=== PATIENT | male | born 1960 | race Caucasian/White ===

== ENCOUNTER 2017-01-15 08:28 | Inpatient (IN) | payer BC, OTHER ==
[~2017-01-15] VITALS: Ht 185.4 cm; Wt 80.3 kg
[2017-01-15] MEDS ORDERED: MAGNESIUM HYDROXIDE 30 ML LIQUID UDC PO PRN (15:00)
[2017-01-15] MEDS ORDERED: HYDROXYZINE PAMOATE 25 MG CAPSULE PO PRN (15:00)
[2017-01-15] MEDS ORDERED: ONDANSETRON ODT 4 MG TAB.RAPDIS SL PRN (15:00)
[2017-01-15] MEDS ORDERED: DICYCLOMINE HCL 20 MG TABLET PO PRN (15:00)
[2017-01-15] MEDS ORDERED: GABAPENTIN 300 MG CAPSULE PO SCH ×2 (15:00→21:00)
[2017-01-15] MEDS ORDERED: IBUPROFEN 400 MG TABLET PO PRN (15:00)
[2017-01-15] MEDS ORDERED: LOPERAMIDE HCL 2 MG CAPSULE PO PRN ×2 (15:00)
[2017-01-15] MEDS ORDERED: MAG HYDROX/AL HYDROX/SIMETH 30 ML LIQUID UDC PO PRN (15:00)
[2017-01-15] MEDS ORDERED: THIAMINE HCL 200 MG/2 ML VIAL IM ONE (15:00)
[2017-01-15] MEDS ORDERED: ONDANSETRON 4 MG/2 ML VIAL IM PRN (15:00)
[2017-01-15] MEDS ORDERED: LORAZEPAM 2 MG/1 ML VIAL IM PRN (15:00)
[2017-01-15] MEDS ORDERED: MIRALAX 17 GM POWD.PACK PO PRN (15:00)
[2017-01-15] MEDS ORDERED: LORAZEPAM 1 MG TABLET PO PRN ×2 (15:00)
[2017-01-15] MEDS ORDERED: ACETAMINOPHEN 325 MG TABLET PO PRN (15:00)
--- NOTE | 2017-01-15 15:20 | NUR ---
PRE ASSESSMENT: A 56 Y O MALE IS A/O X 4 AND WITH STEADY GAIT IN INTAKE. BP 122/88 104 96.8 95% 18. HE REPORTS ELEVATED H1AC AND TAKES METFORMIN. HE REPORTS HTN AND TAKES LISINIPRIL,ECZEMA WHICH HE BROUGHT CREAM FOR AND HYPERLIPIDEMIA. HE STATES HE DRINKS 750 ML OF RUM DAILY IN THIS PATTERN FOR 1 1/2 YEARS. HE HAD A SEIZURE AT HIS FATHER'S IN MAY FROM ETOH W/D. HE STATES HEHAS BEEN TRRYING TO QUIT ON HIS OWN FOR 6 MONTHS AND IS UNABLE. HE STATES HE NEEDS HELP. HE HAD 4 SHOTS OF RUM AT 1 PM TODAY. WILL ASSESS ON UNIT.
[2017-01-15] MEDS ORDERED: ASPI81TA93 PO (15:35)
[2017-01-15] MEDS ORDERED: ATOR20TA PO (15:35)
[2017-01-15] MEDS ORDERED: TRIA15CR2 TP (15:35)
[2017-01-15] MEDS ORDERED: METF10002 PO (15:35)
[2017-01-15] MEDS ORDERED: LISI10TA5 PO (15:35)
[2017-01-15 16:27] VITALS: BP 122/88
--- NOTE | 2017-01-15 16:37 | NUR ---
A 56 YO MALE ADMITTED TO [facility] FOR MEDICALLY SUPERVISED DETOX OF ETOH. HE REPORTS DRINKING 750 ML OF RUM DAILY. HE HAS BEEN IN THIS PATTERN FOR 1 1/2 YEARS. HE HAS A 20 YR HISTORY OF DRINKING ETOH. HE REPORTS HAVING A SEIZURE IN MAY AFTER NOT HAVING A DRINK FOR 3 DAYS. HE HAS TRIED TO STOP ON HIS OWN SINCE THEN AND STATES HE WAS UNSUCCESSFUL AND HE NEEDS HELP. HE REPORTS LIVING AT HOME WITH HIS AND DOG . HIS FATHER IN MAY AND HAS HAD OTHER SICKNESS AND DEATHS IN HIS FAMILY WHICH HAVE NOT MADE IT ANY EASIER. HE DENIES S/I AND H/I. SKIN WARM DRY AND INTACT WITH SOME ECCHYMOTIC AREAS TO BILATERAL ARMS FROM REPORTED ECZEMA. PT IS HYPERVERBAL AND REPORTS MILD ANXIETY. HE IS UNABLE TO VOID AND IS ON ROOM RESTRICTION UNTIL UDS COLLECTED. HIS PCP IS DR LOPEZ. HE STATES HE TOOK A VICODIN YESTERDAY BUT THIS WAS THE ONLY ONE AND HE TOOK IT BECAUSE OF ANXIETY ABOUT COMING IN TODAY. HE HAS A MEDICAL HX OF HTN;HYPERLIPIDEMIA;ELEVATED HGA1C; AND ECZEMA. HE HAS A HX OF H PYLORIC VIRUS. HE HAD ONE SEIZURE IN MAY FROM ETOH W/D. ORIENTED PT TO STAFF AND UNIT. WILL PROVIDE SAFE AND SUPPORTIVE ENVIRONMENT. Addendum: 01/15/17 at 1801 by ARLETTE VIZCAINO RN PT DRANK 4 SHOTS OF RUM AT 1300 TODAY. UDS PROVIDED AT 1755. THIAMINE IM ADMINISTERED ORDERED.
[2017-01-15 18:12] LABS: *AMPHETAMINE, URINE NEGATIVE (NEGATIVE); *BARBITURATE, URINE NEGATIVE (NEGATIVE); *CANNABINOID, URINE NEGATIVE (NEGATIVE); *COCCAINE, URINE NEGATIVE (NEGATIVE); *OPIATE, URINE POSITIVE (NEGATIVE); *PHENCYCLIDINE SCREEN,URINE NEGATIVE (NEGATIVE)
--- NOTE | 2017-01-15 18:42 | NUR ---
END OF SHIFT: PT IS NEWLY ADMITTED. HE IS WATCHING TV AND STATES HE FEELS OK. THIAMINE IM ADMINISTERED. UDS PROVIDED. WILL PASS SHIFT REPORT TO ONCOMING NIGHT NURSE.
[2017-01-15 19:57] LABS: BASOPHILS % (AUTO) 0.9 % (0.0-2.0); EOSINOPHILS # (AUTO) 0.1 K/uL (0.0-0.7); EOSINOPHILS % (AUTO) 1.9 % (0.0-7.0); HEMATOCRIT 33.3 % (40-50); HEMOGLOBIN 11.4 G/DL (14.0-18.0); LYMPHOCYTES # (AUTO) 1.4 K/UL (0.8-4.8); LYMPHOCYTES % (AUTO) 32.5 % (20.5-51.5); MEAN CORPUSCULAR HEMOGLOBIN 36.2 UUG (27.0-31.0); MEAN CORPUSCULAR HGB CONC 34 g/dL (32.0-37.0); MEAN CORPUSCULAR VOLUME 105.6 FL (82.0-92.0); MONOCYTES # (AUTO) 0.4 K/UL (0.1-1.30); MONOCYTES % (AUTO) 9.2 % (0.0-11.0); NEUTROPHILS # (AUTO) 2.4 K/UL (1.8-8.9); NEUTROPHILS % (AUTO) 55.5 % (38.5-71.5); PLATELET COUNT (AUTO) 103 K/UL (150-450); RED BLOOD CELL COUNT(AUTO) 3.16 MIL/UL (4.7-6.1); WHITE BLOOD COUNT (AUTO) 4.3 K/UL (4.0-11.2)
[2017-01-15 20:00] VITALS: BP 147/93
--- NOTE | 2017-01-15 20:00 | NUR ---
Start of Shift Patient is a 56-year old, male, admitted for ETOH Dependence. Pt with NKA, is Full Code and on Diabetic/NCS Diet. Pt with history of HTN, Hyperlipidemia, DM2, Anxiety, Depression, H.pylori Virus and Seizure one-time last 05/2016 due to Withdrawal. Pt is AAOx4 and with no SOB noted at this time. Pt with mild anxiety observed. With no skin issues. Fall, universal, seizure and safety prec in place. Call light within reach. No c/o pain at this time. Latest CIWA=4. Will continue to monitor pt.
[2017-01-15 20:13] LABS: BILIRUBIN,TOTAL 0.6 mg/dL (0.2-1.0); CREATININE 0.7 mg/dL (0.6-1.3); POTASSIUM 3.4 mmol/L (3.5-5.1); TOTAL PROTEIN, SERUM 7.5 g/dL (6.4-8.2)
[2017-01-15 20:21] LABS: THYROID STIMULATING HORMONE 2.41 mIU/mL (0.358-3.740)
[2017-01-15] MEDS ORDERED: MAGNESIUM OXIDE 400 MG TABLET PO ONE (20:30)
[2017-01-15] MEDS ORDERED: POTASSIUM CHLORIDE 10 MEQ CAPSULE.SA PO ONE (20:30)
[2017-01-15] MEDS: TRAZODONE 50 MG TABLET PO PRN (21:35)
--- NOTE | 2017-01-15 21:35 | NUR ---
RN note PRN Ativan and Trazodone Pt c/o feeling anxious and with cold sweats observed. CIWA=7. Administered Ativan 1 mg PO as ordered. Pt also c/o inability to sleep. Administered Trazodone 50 mg PO as ordered. Will reassess.
--- NOTE | 2017-01-15 22:40 | NUR ---
RN note reassess Pt verbalized feeling "better" and "starting to feel sleepy now". No cold sweats reported.
[2017-01-16] VITALS (8 sets, daily range): BP systolic 134–164; BP diastolic 86–109
[2017-01-16] MEDS: CLONIDINE HCL 0.1 MG TABLET PO PRN ×3 (00:44→21:07)
--- NOTE | 2017-01-16 00:44 | NUR ---
RN note PRN Clonidine Pt with UW=224/95, Davoq=342. With no reported symptoms from patient. Administered Clonidine 0.1 mg PO/ Will reassess.
--- NOTE | 2017-01-16 01:34 | NUR ---
RN note reassess BP apvwipvif=064/88. Pulse=87. Clonidine effective. Will continue to monitor pt.
[2017-01-16] MEDS ORDERED: hydrALAZINE HCL 25 MG TABLET PO SCH (04:30)
--- NOTE | 2017-01-16 04:32 | NUR ---
RN note one-time Hydralazine Pt with elevated BT=718/102, Pulse=97. Obtained order for Hydralazine 25 mg one-time PO. Will reassess.
--- NOTE | 2017-01-16 05:30 | NUR ---
RN note reassess BP rvmtiuwko=505/86, Pulse=97. Pt is asymptomatic. Will closely monitor pt.
--- NOTE | 2017-01-16 06:21 | NUR ---
RN note one-time Clonidine and Lisinopril Vital signs being closely monitored, checked before the end of the shift. TZ=061/103, Bzvxt=439. Notified Dr. Atkinson and he ordered one-time Lisinopril 10 mg PO and one-time Clonidine 0.1 mg PO one-time. Pt is asymptomatic. No c/o pain nor dizziness. Will reassess.
[2017-01-16] MEDS ORDERED: CLONIDINE HCL 0.1 MG TABLET PO ONE (06:30)
[2017-01-16] MEDS ORDERED: LISINOPRIL 10 MG TABLET PO SCH (06:30)
--- NOTE | 2017-01-16 07:20 | NUR ---
RN note reassess Pt's BP viqpsrttx=420/103. Pt is asymptomatic. Dr. Atkinson is aware. [facility]
--- NOTE | 2017-01-16 07:27 | NUR ---
End of Shift Patient is a 56-year old, male, admitted for ETOH Dependence. Pt with NKA, is Full Code and on Diabetic/NCS Diet. Pt with history of HTN, Hyperlipidemia, DM2, Anxiety, Depression, H.pylori Virus and Seizure one-time last 05/2016 due to Withdrawal. Pt is AAOx4 and with no SOB noted at this time. Pt with mild anxiety observed. With no skin issues. Fall, universal, seizure and safety prec in place. Call light within reach. No c/o pain at this time. Latest CIWA=6, slept for 6 hours. Endorsed to AM shift nurse for continuity of care.
--- NOTE | 2017-01-16 07:30 | NUR ---
Start of Shift Report from the night nurse: pt is 56 y/o male here for Etoh r/t Rum 750mL daily for 1.5 years; 5 day Ativan is to start today during my shift. PRN Ativan given once last night. Pt is a full code, ADA diet, NKA, fall and seizure precautions ordered. HHx: HTN with asymptomatic BP 160/105 with PRN Clonidine given once and a ONE Time ordered Clonidine and Lisinopril given this morning during the retail shift supervisor since the nurse states that PRN Hydralazine was ineffective given last night and that pt . I will reassess it during the 0700am v/s scheduled. HHx: Diabetes, Seizure r/t w/d, Hyperlipidemia, Eczema, H. Pylori Virus and first time doing detox. Skin is intact with no open wounds noted. No abnormal labs endorsed to me. Last CIWA 4. Pt is asleep in room. I will cont. to monitor the pt.
[2017-01-16 07:38] LABS: BASOPHILS % (AUTO) 0.7 % (0.0-2.0); EOSINOPHILS % (AUTO) 1.1 % (0.0-7.0); HEMATOCRIT 34.9 % (40-50); HEMOGLOBIN 11.6 G/DL (14.0-18.0); LYMPHOCYTES % (AUTO) 26.5 % (20.5-51.5); MEAN CORPUSCULAR HEMOGLOBIN 35.6 UUG (27.0-31.0); MEAN CORPUSCULAR HGB CONC 33 g/dL (32.0-37.0); MEAN CORPUSCULAR VOLUME 107.1 FL (82.0-92.0); MONOCYTES # (AUTO) 0.4 K/UL (0.1-1.30); MONOCYTES % (AUTO) 11.1 % (0.0-11.0); NEUTROPHILS # (AUTO) 2.5 K/UL (1.8-8.9); NEUTROPHILS % (AUTO) 60.6 % (38.5-71.5); RED BLOOD CELL COUNT(AUTO) 3.26 MIL/UL (4.7-6.1); WHITE BLOOD COUNT (AUTO) 3.9 K/UL (4.0-11.2)
[2017-01-16 07:55] LABS: PLATELET COUNT (AUTO) 95 K/UL (150-450)
[2017-01-16 08:07] LABS: CARBON DIOXIDE 29 mmol/L (21-32); CHLORIDE 98 mmol/L (98-107); CREATININE 0.6 mg/dL (0.6-1.3); GLUCOSE 126 mg/dL (74-106); PHOSPHOROUS 3.2 mg/dL (2.5-4.9); POTASSIUM 3.6 mmol/L (3.5-5.1); UREA NITROGEN, BLOOD 8 mg/dL (7-18)
[2017-01-16 08:15] LABS: MAGNESIUM 1.2 mg/dL (1.8-2.4)
[2017-01-16] MEDS: MULTIVITAMINS,THERAPEUTIC TABLET PO SCH (08:51)
[2017-01-16] MEDS: FOLIC ACID 1 MG TABLET PO SCH (08:51)
[2017-01-16] MEDS: THIAMINE HCL 100 MG TABLET PO SCH (08:51)
[2017-01-16] MEDS: SERTRALINE HCL 50 MG TABLET PO SCH (08:51)
[2017-01-16] MEDS: LORAZEPAM 1 MG TABLET PO SCH ×4 (08:52→21:08)
[2017-01-16] MEDS ORDERED: DOCUSATE SODIUM 250 MG CAPSULE PO PRN (09:00)
[2017-01-16] MEDS ORDERED: DOCUSATE SODIUM 250 MG CAPSULE PO SCH (09:00)
[2017-01-16] MEDS ORDERED: TUBERCULIN,PURIF.PROT.DERIV. 5 TU/0.1 ML TEST ID ONE (09:00)
[2017-01-16] MEDS ORDERED: 5 DAY TAPER OF LORAZEPAM -SERENITY PROTOCOL PO PRN (09:00)
[2017-01-16 10:00] LABS: BAND % (MANUAL) 1 % (0-10); EOSINOPHILS % (MANUAL) 1 % (0-8); LYMPHOCYTES % (MANUAL) 28 % (20-40); MONOCYTES % (MANUAL) 12 % (2-10); NEUTROPHILS % (MANUAL) 58 % (42-75)
--- NOTE | 2017-01-16 10:00 | NUR ---
Communication-Low Magnesium Call from [employer] " Kathe" re: low Magnesium 1.2. I notified Dr. Dodge and New orders for Mag-Ox 800mg PO ONCE. Will cont. to monitor the pt.
[2017-01-16] MEDS ORDERED: MAGNESIUM OXIDE 400 MG TABLET PO ONE (10:45)
--- NOTE | 2017-01-16 12:40 | NUR ---
PRN & Late Medication Administration Pt is in room at rest in semi-fowlers 20 minutes after returning from smoking and pt c/o numbness and tingling in BUE's and BLE's/feet, very mild dizziness with BP 141/109 HR 108 CIWA 3; PRN Clonidine 0.1mg given as ordered & I notified Dr. Dodge so new orders in process for gabapentin. Late medication administration of Mag-Ox 800mg since pt was out smoking. TB test done at 0900 in [facility]. I will reassess BP in 1H.
--- NOTE | 2017-01-16 13:40 | NUR ---
Reassessment PRN Clonidine is effective since BP decreased to 119/90, pt denies chest pain. Will cont. to monitor the pt.
--- NOTE | 2017-01-16 14:30 | NUR ---
New Orders & Late Medication Administration New orders for Lisinopril 10mg first time dose given late since pt was out in group therapy, BP 119/90 HR 99 & gabapentin 100mg given for neuropathic pain /10 first time dose so education on actions and SE's given with ortho static fall prevention.
[2017-01-16] MEDS: LISINOPRIL 10 MG TABLET PO SCH (14:38)
[2017-01-16] MEDS: GABAPENTIN 300 MG CAPSULE PO SCH ×2 (14:38→21:08)
[2017-01-16] MEDS: TRIAMCINOLONE ACET 0.5% CREAM 15 GM TUBE TP SCH (17:00)
[2017-01-16] MEDS: METFORMIN HCL 500 MG TABLET PO SCH (17:45)
--- NOTE | 2017-01-16 18:46 | NUR ---
End of Shift Report to the night nurse: pt is 56 y/o male here for Etoh r/t Rum 750mL daily for 1.5 years; 5 day Ativan started today. Pt is a full code, ADA diet, NKA, fall and seizure precautions ordered. HHx: HTN, Diabetes, Seizure r/t w/d, Hyperlipidemia, Eczema, H. Pylori Virus and first time doing detox. Features symmetrical, PERRLA 3mm, no LOEV, mild dizziness noted r/t medication SE's, numbness and tingling on BUE's and BLE's with news orders for gabapentin r/t neuropathy and is effective. Pt denies chest pain, pulses present in all extremities, HTN controlled with new orders for lisinopril 5mg PO daily given with PRN Clonidine once during my shift. No SOB or respiratory distress noted. DM managed with new order for Metformin, no N/V/D or ab cramping noted during my shift, last BM yesterday. Skin is intact with no open wounds noted, yet pt has new orders for medications reconciled for home med topical for Eczema & PPD done on [facility]. No hallucination, delusions or suicidal ideations noted. Pt attended once group HI during my shift with encouragement. Abnormal labs for low Magnesium 1.2 with new order for Mag-Ox 800mg ONCE given during my shift. Last CIWA 5.
--- NOTE | 2017-01-16 20:00 | NUR ---
Start of Shift Note: Report received from day shift nurse. Pt is a 56 Y/O male admitted on 01/15/17 for medically-supervised withdrawal from ETOH. Pt reported drinking 750ml of rum daily for 1.5 years. Pt is on a 5-day Ativan taper. Pt received with last CIWA=5, and PRN Catapres was given during day shift. Pt is a full code, reports NKDA/NKFA, and is on a CC/Diabetic diet. PMHx: DM II, HTN, dyslipidemia, anxiety, depression, eczema. Pt received in room and reports diaphoresis and anxiety. Bed is in low position and locked, side rails up x2, call light within reach. Will continue to monitor.
[2017-01-16] MEDS: TRAZODONE 50 MG TABLET PO PRN (21:07)
--- NOTE | 2017-01-16 21:07 | NUR ---
PRN CLONIDINE AND PRN TRAZODONE: PATIENT COMPLAINS OF ANXIETY. BP IS 134/100. ADMINISTERED PRN CLONIDINE ORDERED. PATIENT COMPLAINS OF INABILITY TO SLEEP. ADMINISTERED PRN TRAZODONE ORDERED. WILL CONTINUE TO MONITOR.
--- NOTE | 2017-01-16 22:10 | NUR ---
PRN REASSESSMENT: PATIENT IS IN BED WITH EYES CLOSED. RESPIRATIONS ARE EVEN AND UNLABORED. NO S/S OF ACUTE DISTRESS NOTED. PRN TRAZODONE AND PRN CLONIDINE EFFECTIVE AEB PATIENT'S ABILITY TO REST. WILL CONTINUE TO MONITOR.
[2017-01-17] VITALS: BP 122/91
--- NOTE | 2017-01-17 | NUR ---
CIWA DEFERRED: CIWA IS DEFERRED FOR SLEEP. V/S STABLE. ALL SAFETY PRECAUTIONS ARE IN PLACE. WILL CONTINUE TO MONITOR. Addendum: 01/17/17 at 0120 by STEVE SHAIKH RN Amended: Links added.
[2017-01-17 04:00] VITALS: BP 126/94
--- NOTE | 2017-01-17 04:00 | NUR ---
CIWA Deferred: CIWA is deferred for sleep. V/S stable. All safety precautions are in place. Will continue to monitor. Addendum: 01/17/17 at 0435 by STEVE SHAIKH RN Amended: Links added.
--- NOTE | 2017-01-17 07:15 | NUR ---
Start of Shift Report from the night nurse: pt is 56 y/o male here for Etoh r/t Rum 750mL daily for 1.5 years; 5 day Ativan is to start today during my shift. PRN Ativan given once last night. Pt is a full code, ADA diet, NKA, fall and seizure precautions ordered. HHx: HTN with last BP elevated 156/109 so PRN Clonidine given once after Dr. Dodge notified of BP in which he d/c'd the losartan so recommended for me to f/u with the pt's preference. HHx: Diabetes with metformin given as ordered and NNO for accuecheck, Seizure r/t w/d, Hyperlipidemia, Eczema, H. Pylori Virus and first time doing detox. Skin is intact with no open wounds noted. No abnormal labs endorsed to me. Last CIWA 4. Pt is asleep in room. I will cont. to monitor the pt.
--- NOTE | 2017-01-17 07:30 | NUR ---
End of Shift Note: Pt is a 56 Y/O male admitted to [facility] on 01/15/17 for medically-supervised withdrawal from ETOH. Pt reports a PMHx of DM II, HTN, dyslipidemia, anxiety, depression, and eczema. Pt is a full code. Pt reports NKDA/NKFA. Pt is on a CC/Diabetic diet. Pt reported drinking 750ml of rum daily for 1.5 years, and was placed on a 5-day Ativan taper. Scheduled medication regime effectively managed s/s of withdrawal this shift, in addition to PRN Catapres for anxiety. Last CIWA=4 at 20:00.V/S stable throughout shift, with elevated BP. Total fluid intake this shift: 855 ml; output: urine x 2 and BM x 1. PRN Trazodone was given for inability to sleep, which was effective and pt slept 8 hours this shift. Pt is currently in bed, all needs attended and met. Pt endorsed to day shift nurse.
[2017-01-17 08:00] VITALS: BP 153/110
[2017-01-17] MEDS: METFORMIN HCL 500 MG TABLET PO SCH ×2 (08:48→16:57)
[2017-01-17] MEDS: GABAPENTIN 300 MG CAPSULE PO SCH ×3 (08:48→22:17)
[2017-01-17] MEDS: LORAZEPAM 1 MG TABLET PO SCH ×3 (08:48→22:17)
[2017-01-17] MEDS: THIAMINE HCL 100 MG TABLET PO SCH (08:48)
[2017-01-17] MEDS: ASPIRIN 81 MG TAB.CHEW PO SCH (08:48)
[2017-01-17] MEDS: FOLIC ACID 1 MG TABLET PO SCH (08:48)
[2017-01-17] MEDS: LISINOPRIL 10 MG TABLET PO SCH (08:49)
[2017-01-17] MEDS: MULTIVITAMINS,THERAPEUTIC TABLET PO SCH (08:49)
[2017-01-17] MEDS: SERTRALINE HCL 50 MG TABLET PO SCH (08:49)
[2017-01-17] MEDS: TRIAMCINOLONE ACET 0.5% CREAM 15 GM TUBE TP SCH ×2 (08:54→16:58)
[2017-01-17 08:55] LABS: BILIRUBIN,DIRECT 0.5 mg/dL (0.0-0.2); BILIRUBIN,TOTAL 1.2 mg/dL (0.2-1.0); CREATININE 0.8 mg/dL (0.6-1.3); MAGNESIUM 1.6 mg/dL (1.8-2.4); PHOSPHOROUS 4.1 mg/dL (2.5-4.9); POTASSIUM 3.7 mmol/L (3.5-5.1); TOTAL PROTEIN, SERUM 7.8 g/dL (6.4-8.2)
[2017-01-17 11:10] LABS: HEPATITIS B SURFACE AG Negative (Negative)
[2017-01-17 12:00] VITALS: BP 145/107
[2017-01-17] MEDS ORDERED: MAGNESIUM OXIDE 400 MG TABLET PO ONE ×2 (12:30→13:15)
[2017-01-17] MEDS: CLONIDINE HCL 0.1 MG TABLET PO PRN (13:38)
--- NOTE | 2017-01-17 14:30 | NUR ---
New Orders & PRN Medication Administration Pt has low Magnesium 1.6 and c/o 1st bout of diarrhea after breakfast to Dr. Dodge so new orders of Magnesium 1200mg once and given late since pt was in group with PRN Imodium 4mg and Clonidine 0.1mg since pt has tremors visible and is anxious, BP 145/107 HR 97 at rest. I encouraged pt to replenish hydrations with vitamin water and regular water and to let me know if he has recurrent diarrhea. New lab orders for 01/18: CBC, Chem 22, Iron panel. I will reassess in 1H.
--- NOTE | 2017-01-17 15:08 | NUR ---
Client was prompted by therapist to attend daily group sessions at 11am and 3:30pm. Client stated he doesn't usually like to attend groups but would give it a try.
--- NOTE | 2017-01-17 15:30 | NUR ---
Reassessment Pt is resting in room with stable BP and denies recurrent episode of diarrhea; PRN Clonidine & Imodium are effective. Will cont. to monitor the pt.
[2017-01-17 16:00] VITALS: BP 156/112
[2017-01-17] MEDS: hydrALAZINE HCL 25 MG TABLET PO PRN (16:57)
--- NOTE | 2017-01-17 17:30 | NUR ---
PRN Medication Administration Pt has BP 156/112 HR 99 so PRN Hydralazine 25mg given as ordered. I will reassess pt in 1H.
--- NOTE | 2017-01-17 18:40 | NUR ---
Reassessment Endorsed to night nurse for reassessment of the BP during shift change. Will cont. to monitor the pt until the end of my shift.
--- NOTE | 2017-01-17 19:05 | NUR ---
End of Shift Report to the night nurse: pt is 56 y/o male here for Etoh r/t Rum 750mL daily for 1.5 years; 5 day Ativan started today. Pt is a full code, ADA diet, NKA, fall and seizure precautions ordered. HHx: HTN, Diabetes, Seizure r/t w/d, Hyperlipidemia, Eczema, H. Pylori Virus and first time doing detox. Features symmetrical, PERRLA 3mm, no LOVE, mild dizziness noted r/t medication SE's, numbness and tingling on BUE's and BLE's with news orders for gabapentin r/t neuropathy and is effective. Pt denies chest pain, pulses present in all extremities, HTN managed with modified lisinopril 10mg, PRN Clonidine once at 1430pm and PRN Hydralazine 25mg given at 1715pm during my shift. No SOB or respiratory distress noted. DM managed with new order for Metformin, no N/V/D or ab cramping noted during my shift. Abnormal labs for low Magnesium 1.6 with new order for Mag-Ox 1200mg given with Imodium 4mg since pt has 2 bouts of diarrhea during my shift. Skin is intact with no open wounds noted, yet pt has new orders for medications reconciled for home med topical for Eczema & refused it during my shift since he uses it at home PRN. No hallucination, delusions or suicidal ideations noted. New orders for Fe2+ panel, CBC, Chem 22. Pt attended once groups during my shift. Last CIWA 6 .
--- NOTE | 2017-01-17 19:30 | NUR ---
PRN Hydralazine Reassessment: BP decreased from 153/112 to 123/93. PRN Hydralazine effective.
[2017-01-17 20:00] VITALS: BP 123/93
--- NOTE | 2017-01-17 20:00 | NUR ---
Start of Shift Note: Report received from day shift nurse. Pt is a 56 yo male admitted on 01/15/17 for medically-supervised withdrawal from ETOH. Pt reports drinking 750ml of rum daily for 18 months. Pt continues on a 5-day Ativan taper. Pt received with last CIWA=6, and PRNs Clonidine, hydralazine, and imodium were given during day shift. Pt reports NKDA/NKFA, is on a CC/Diabetic diet, and is a full code. PMHx: DM II, HTN, dyslipidemia, eczema, anxiety, and depression. Pt received in room and reports anxiety; pt noted with fine tremor. Bed is in low position and locked, side rails up x2, call light is within reach. Will continue to monitor.
--- NOTE | 2017-01-17 21:00 | NUR ---
21:00 Meds Late: All 21:00 scheduled medications late due to patient being off the unit on the smoking patio.
[2017-01-17] MEDS: TRAZODONE 50 MG TABLET PO PRN (22:17)
--- NOTE | 2017-01-17 22:17 | NUR ---
PRN Trazodone: Patient complains of inability to sleep. Administered PRN Trazodone as ordered. Will continue to monitor.
[2017-01-18] VITALS: BP 139/95
--- NOTE | 2017-01-18 | NUR ---
CIWA Deferred: CIWA is deferred for sleep. V/S stable. All safety precautions are in place. Will continue to monitor. Addendum: 01/18/17 at 0103 by STEVE SHAIKH RN Amended: Links added.
--- NOTE | 2017-01-18 04:00 | NUR ---
Vitals Refused, CIWA Deferred: Patient refuses 04:00 V/S assessment. CIWA is deferred for sleep. No s/s of acute distress noted. All safety precautions are in place. Will continue to monitor. Addendum: 01/18/17 at 0544 by STEVE SHAIKH RN Amended: Links added.
--- NOTE | 2017-01-18 06:48 | NUR ---
End of Shift Note: Pt is a 56 yo male admitted to [facility] on 01/15/17 for medically-supervised withdrawal from ETOH. Pt reported a PMHx of DM II, HTN, dyslipidemia, eczema, anxiety, and depression. Pt reports NKDA/NKFA. Pt is on a CC/Diabetic diet. Pt is a full code. Pt reported drinking 750ml of rum daily for 18 months, and was placed on a 5-day Ativan taper. Scheduled medication regime effectively managed s/s of withdrawal this shift. Last CIWA=4 at 20:00.V/S stable throughout shift. Total fluid intake this shift: 500 ml; output: urine x 2 and BM x 0. PRN Trazodone was given for inability to sleep, which was effective and pt slept 8 hours this shift. Pt is currently in bed, all needs attended and met. Pt endorsed to day shift nurse.
--- NOTE | 2017-01-18 07:41 | NUR ---
Start of Shift Received pt in bed resting, A/O x4 and calm and cooperative. Pt is polite and pleasant, able to make needs known. Pt is a 56 year old male admitted for ETOH detoxification on 01/15/17. Pt has NKA, is a full code and on a controlled carbohydrate diet. Pt was administered Trazodone for insomnia, effective as pt slept a reported 8 hours. PMH of DM 1, HTN, anxiety, depression, hyper-cholesterol and eczema. No history of seizure. This is pt's first detoxification or treatment. Pt is currently on 5 day Ativan taper, tolerating well. Bed in low position, wheels locked, side rails up x2 and call light within reach. All safety measures in place per hospital policy. Will continue to monitor, support and encourage according to plan of care.
[2017-01-18 08:07] VITALS: BP 150/108
[2017-01-18] MEDS: METFORMIN HCL 500 MG TABLET PO SCH ×2 (08:20→18:28)
[2017-01-18 08:21] LABS: BASOPHILS # (AUTO) 0.1 K/uL (0.0-8.0); BASOPHILS % (AUTO) 1.2 % (0.0-2.0); EOSINOPHILS # (AUTO) 0.1 K/uL (0.0-0.7); EOSINOPHILS % (AUTO) 1.5 % (0.0-7.0); HEMATOCRIT 37.2 % (40-50); HEMOGLOBIN 12.4 G/DL (14.0-18.0); LYMPHOCYTES # (AUTO) 1.4 K/UL (0.8-4.8); MEAN CORPUSCULAR HEMOGLOBIN 35.7 UUG (27.0-31.0); MEAN CORPUSCULAR HGB CONC 33 g/dL (32.0-37.0); MEAN CORPUSCULAR VOLUME 107.5 FL (82.0-92.0); MONOCYTES # (AUTO) 0.5 K/UL (0.1-1.30); MONOCYTES % (AUTO) 9.6 % (0.0-11.0); NEUTROPHILS # (AUTO) 3.3 K/UL (1.8-8.9); NEUTROPHILS % (AUTO) 61.7 % (38.5-71.5); PLATELET COUNT (AUTO) 112 K/UL (150-450); RED BLOOD CELL COUNT(AUTO) 3.46 MIL/UL (4.7-6.1)
[2017-01-18] MEDS: FOLIC ACID 1 MG TABLET PO SCH (08:21)
[2017-01-18] MEDS: GABAPENTIN 300 MG CAPSULE PO SCH ×3 (08:21→20:46)
[2017-01-18] MEDS: LORAZEPAM 1 MG TABLET PO SCH ×4 (08:21→20:47)
[2017-01-18] MEDS: LISINOPRIL 10 MG TABLET PO SCH (08:21)
[2017-01-18] MEDS: ASPIRIN 81 MG TAB.CHEW PO SCH (08:21)
[2017-01-18] MEDS: THIAMINE HCL 100 MG TABLET PO SCH (08:22)
[2017-01-18] MEDS: SERTRALINE HCL 50 MG TABLET PO SCH (08:22)
[2017-01-18] MEDS: TRIAMCINOLONE ACET 0.5% CREAM 15 GM TUBE TP SCH ×2 (08:22→16:20)
[2017-01-18] MEDS: MULTIVITAMINS,THERAPEUTIC TABLET PO SCH (08:22)
[2017-01-18 08:23] LABS: WHITE BLOOD COUNT (AUTO) 5.4 K/UL (4.0-11.2)
[2017-01-18 08:58] LABS: BILIRUBIN,DIRECT 0.5 mg/dL (0.0-0.2); BILIRUBIN,TOTAL 1.2 mg/dL (0.2-1.0); CREATININE 0.8 mg/dL (0.6-1.3); MAGNESIUM 1.5 mg/dL (1.8-2.4); PHOSPHOROUS 4.8 mg/dL (2.5-4.9); POTASSIUM 3.8 mmol/L (3.5-5.1); TOTAL PROTEIN, SERUM 8.1 g/dL (6.4-8.2)
[2017-01-18 12:00] VITALS: BP 163/116
--- NOTE | 2017-01-18 12:09 | NUR ---
Endorsement Thread Machine Operator provided report to accepting nurse. Pt is a 56 year old male admitted for ETOH detoxification on 01/15/17. Pt has NKA, is a full code and on a controlled carbohydrate diet. PMH of DM 1, HTN, anxiety, depression, hyper-cholesterol and eczema. No history of seizure. This is pts first detoxification or treatment. Pt is currently on 5 day Ativan taper, tolerating well. Bed in low position, wheels locked, side rails up x2 and call light within reach. All safety measures in place per hospital policy. No PRNs administered. Pt is A/Ox4 and able to make his needs known. Pt has been calm and cooperative with treatment, polite and pleasant. No s/s of distress noted. Bed in low position, wheels locked, side rails up x2 and call light in reach. All safety measures in place per hospital policy. Will continue to monitor, support and encourage according to plan of care.
--- NOTE | 2017-01-18 12:10 | NUR ---
Assumed care: Assumed care for patient at this time. Patient is a 56 year old male admitted for ETOH dependence who was placed on a 5-day Ativan taper as ordered. No adverse reactions noted. Prior to admission, patient was using 750cc of rum daily x 1 1/2 years. Has past medical hx of H. Pylori virus, HTN, high cholesterol, HgBA1C, eczema, seizures x 1 related to withdrawal, anxiety and depression. Educated patient on his current plan of care for the day and his medication regimen. Will continue to monitor closely. Safety precautions in place.
[2017-01-18] MEDS: hydrALAZINE HCL 25 MG TABLET PO PRN ×2 (12:24→20:46)
--- NOTE | 2017-01-18 12:24 | NUR ---
Hydralazine 25 mg PO given: Patient's BP 163/116, Pulse 91 while at rest. Denies any complains of headache, dizziness and/or chest pain. No complains of blurred vision. Medicated patient with Hydralazine 25mg PO as ordered. Will monitor for effectiveness.
[2017-01-18 13:24] VITALS: BP 153/101
--- NOTE | 2017-01-18 13:24 | NUR ---
MD Communication/Re-assessment: BP 153/101, Pulse 92. PRN Hydralazine was mildly effective in reducing patient's blood pressure. Encouraged smoking cessation. Notified Dr. Dodge who is on the unit at this time about patient's blood pressure. Per MD, he will enter in orders. Orders noted and carried out.
[2017-01-18] MEDS: AMLODIPINE 5 MG TABLET PO SCH (14:11)
[2017-01-18 17:00] VITALS: BP 150/94
--- NOTE | 2017-01-18 18:53 | NUR ---
End of Shift Notes: Patient continues to be on 5-day Ativan taper. Tolerated well. No adverse reactions noted. VS monitored closely. BP monitored due to HTN. On routine meds as ordered. Withdrawal symptoms monitored. Patient presented with anxiety and fine tremors. Last CIWA 6. Per patient, Ativan has been effective in reducing his withdrawal symptoms. PRN Hydralazine 25 mg PO given at 1224 due to increased BP. No s/s of HTN noted. MD aware of patients trending BP and was placed on additional Norvasc as ordered. Compliant with care and treatment. All needs met and attended. Will continue to monitor closely.
--- NOTE | 2017-01-18 19:12 | NUR ---
Start of shift note Received report from day shift nurse. Pt is a 56 yo male, A+Ox4, presenting to [facility] for ETOH dependence. Pt has NKA, is on Full Code status, and on Regular diet. Pt is on Fall and Seizure precautions. Pt has HX of HTN, Hyperlipidemia, hyperglycemia, Anxiety, depression, eczema, and Seizure. Pt is on 5 day Ativan taper, tolerated well. No s/s of distress noted at this time. Respirations even and unlabored. Will continue to monitor.
[2017-01-18 20:15] VITALS: BP 147/112
[2017-01-18] MEDS: MAGNESIUM OXIDE 400 MG TABLET PO SCH (20:47)
[2017-01-18] MEDS: TRAZODONE 50 MG TABLET PO PRN (20:53)
--- NOTE | 2017-01-18 20:53 | NUR ---
PRN Hydralazine and Trazodone Pt noted with Hypertension and c/o inability to sleep. PRN Hydralazine and Trazodone given and tolerated well. Will reassess within 1 HR. Will continue to monitor.
--- NOTE | 2017-01-18 21:45 | NUR ---
PRN Hydralazine and Trazodone Reassessment Medications effective. Pt is resting well in bed. No s/s of ASE/distress noted at this time. Respirations even and unlabored. Will continue to monitor.
[2017-01-19] VITALS (8 sets, daily range): BP systolic 96–163; BP diastolic 66–110
--- NOTE | 2017-01-19 07:02 | NUR ---
End of shift note Pt is a 56 yo male, A+Ox4, presenting to [facility] for ETOH dependence. Pt has NKA, is on Full Code status, and on Regular diet. Pt is on Fall and Seizure precautions. Pt has HX of HTN, Hyperlipidemia, hyperglycemia, Anxiety, depression, eczema, and Seizure. Pt is on 5 day Ativan taper, tolerated well. Pt was given PRN Hydralazine and Trazodone @2052. Pt slept for a total of 8 HRS. Last CIWA: 2 @ 0400. No s/s of distress noted at this time. Respirations even and unlabored. Will endorse to day shift nurse.
--- NOTE | 2017-01-19 07:03 | NUR ---
Start of Shift Notes: Start of Shift Notes: Received patient in his room. Alert and verbally responsive. Oriented x 4. Able to make needs known. Respirations even and unlabored. No SOB noted. Skin warm and dry to touch. Abdomen soft and non-distended with (+) BS in all 4 quadrants. No complains of N/V/D or constipation noted. Denies any complains of abdominal discomfort. Bladder non-distended. No complains of dysuria noted. Ambulatory ad ann with steady gait. Patient is a 56 year old male for ETOH dependence. Prior to admission, patient was using 750cc of Rum. He was placed on a 5-day Ativan taper and is tolerating taper well. Has past medical hx of anxiety, depression, HTN, and eczema. NKA. FULL CODE. Regular diet. On fall and seizure precautions. Educated patient on his current plan of care for the day and his medication regimen. Encouraged oral fluid intake and encouraged group participation to learn new skills to prevent relapse. On fall and seizure precautions. Call light kept in reach. Safety precautions in place. Will continue to monitor closely throughout the day and provide support.
[2017-01-19] MEDS: SERTRALINE HCL 50 MG TABLET PO SCH (08:12)
[2017-01-19] MEDS: THIAMINE HCL 100 MG TABLET PO SCH (08:12)
[2017-01-19] MEDS: LORAZEPAM 1 MG TABLET PO SCH ×3 (08:12→22:17)
[2017-01-19] MEDS: LISINOPRIL 10 MG TABLET PO SCH (08:12)
[2017-01-19] MEDS: AMLODIPINE 5 MG TABLET PO SCH (08:12)
[2017-01-19] MEDS: METFORMIN HCL 500 MG TABLET PO SCH ×2 (08:12→17:11)
[2017-01-19] MEDS: ASPIRIN 81 MG TAB.CHEW PO SCH (08:12)
[2017-01-19] MEDS: FOLIC ACID 1 MG TABLET PO SCH (08:12)
[2017-01-19] MEDS: GABAPENTIN 300 MG CAPSULE PO SCH ×3 (08:12→22:17)
[2017-01-19] MEDS: MULTIVITAMINS,THERAPEUTIC TABLET PO SCH (08:12)
[2017-01-19] MEDS: CLONIDINE HCL 0.1 MG TABLET PO PRN ×2 (08:17→17:11)
[2017-01-19] MEDS: TRIAMCINOLONE ACET 0.5% CREAM 15 GM TUBE TP SCH ×2 (08:17→17:11)
--- NOTE | 2017-01-19 08:17 | NUR ---
Clonidine 0.1mg PO given: Patient noted with BP 161/110, Pulse 85. Denies any complains of chest pain, or pressure. No complains of chest discomfort noted. Denies headache, dizziness and/or blurred vision. Will monitor for effectiveness.
--- NOTE | 2017-01-19 09:17 | NUR ---
Re-assessment: Patient's BP 146/89. PRN Clonidine was effective in reducing patient's blood pressure. Patient is in his room at this time watching TV. Denies any complains of pain or discomfort.
--- NOTE | 2017-01-19 17:11 | NUR ---
Clonidine 0.1mg PO given: Patient noted with BP 163/1106, Pulse 86. Denies any complains of chest pain, or pressure. No complains of chest discomfort noted. Denies headache, dizziness and/or blurred vision. Will monitor for effectiveness.
--- NOTE | 2017-01-19 18:11 | NUR ---
Re-assessment: Patient's BP 145/96, Pulse 89. PRN Clonidine was effective in reducing patient's blood pressure.
--- NOTE | 2017-01-19 18:54 | NUR ---
End of Shift Notes: Patient continues to be on 5-day Ativan taper. Tolerated well. No adverse reactions noted. VS monitored closely. BP monitored due to HTN. On routine meds as ordered. Withdrawal symptoms monitored. Patient presented with anxiety and fine tremors and sweats. Initial CIWA 8. Last CIWA 4. Per patient, Ativan has been effective in reducing his withdrawal symptoms. PRN Clonidine 0.1 mg PO given at 0817 due to increased BP with help after 1 hour and at 1711 with help. No s/s of HTN noted. Compliant with care and treatment. All needs met and attended. Will continue to monitor closely.
--- NOTE | 2017-01-19 19:12 | NUR ---
Start of shift note Received report from day shift nurse. Pt is a 56 yo male, A+Ox4, presenting to [facility] for ETOH dependence. Pt has NKA, is on Full Code status, and on Regular diet. Pt is on Fall and Seizure precautions. Pt has HX of HTN, Hyperlipidemia, hyperglycemia, Anxiety, depression, eczema, and Seizure. Pt is on 5 day Ativan taper, tolerated well. No s/s of distress noted at this time. Respirations even and unlabored. Will continue to monitor.
[2017-01-19] MEDS: MAGNESIUM OXIDE 400 MG TABLET PO SCH (22:17)
[2017-01-19] MEDS: TRAZODONE 50 MG TABLET PO PRN ×2 (22:20→22:21)
--- NOTE | 2017-01-19 22:42 | NUR ---
PRN Trazodone Pt c/o inability to sleep and requested for PRN Trazodone. Medication given and tolerated well. Will reassess within 1 HR. Will continue to monitor.
--- NOTE | 2017-01-19 23:40 | NUR ---
PRN Trazodone Reassessment Medication effective. Pt is resting well in bed at this time. No s/s of ASE/distress noted at this time. Respirations even and unlabored. Will continue to monitor.
[2017-01-20 00:16] VITALS: BP 127/81
[2017-01-20 04:19] VITALS: BP 134/93
--- NOTE | 2017-01-20 07:00 | NUR ---
End of shift note Pt is a 56 yo male, A+Ox4, presenting to [facility] for ETOH dependence. Pt has NKA, is on Full Code status, and on Regular diet. Pt is on Fall and Seizure precautions. Pt has HX of HTN, Hyperlipidemia, hyperglycemia, Anxiety, depression, eczema, and Seizure. Pt is on 5 day Ativan taper, tolerated well. Pt was given PRN Trazodone @2242. Pt slept for a total of 7 HRS. Last CIWA: 2 @0400. No s/s of distress noted at this time. Respirations even and unlabored. Will endorse to day shift nurse.
[2017-01-20 08:00] VITALS: BP 137/97
[2017-01-20] MEDS: LISINOPRIL 10 MG TABLET PO SCH (08:16)
[2017-01-20] MEDS: LORAZEPAM 1 MG TABLET PO SCH ×2 (08:16→20:51)
[2017-01-20] MEDS: SERTRALINE HCL 50 MG TABLET PO SCH (08:16)
[2017-01-20] MEDS: METFORMIN HCL 500 MG TABLET PO SCH ×2 (08:16→17:17)
[2017-01-20] MEDS: MULTIVITAMINS,THERAPEUTIC TABLET PO SCH (08:16)
[2017-01-20] MEDS: TRIAMCINOLONE ACET 0.5% CREAM 15 GM TUBE TP SCH ×2 (08:17→17:17)
[2017-01-20] MEDS: AMLODIPINE 10 MG TABLET PO SCH (08:17)
[2017-01-20] MEDS: THIAMINE HCL 100 MG TABLET PO SCH (08:17)
[2017-01-20] MEDS: FOLIC ACID 1 MG TABLET PO SCH (08:17)
[2017-01-20] MEDS: GABAPENTIN 300 MG CAPSULE PO SCH ×3 (08:17→20:51)
[2017-01-20] MEDS: ASPIRIN 81 MG TAB.CHEW PO SCH (08:17)
[2017-01-20] MEDS ORDERED: AMLODIPINE 5 MG TABLET PO SCH (09:00)
[2017-01-20 09:10] LABS: CREATININE 0.7 mg/dL (0.6-1.3); MAGNESIUM 1.5 mg/dL (1.8-2.4); PHOSPHOROUS 4.4 mg/dL (2.5-4.9); POTASSIUM 4.1 mmol/L (3.5-5.1)
[2017-01-20 12:00] VITALS: BP 131/93
[2017-01-20 16:00] VITALS: BP 141/93
--- NOTE | 2017-01-20 18:51 | NUR ---
End of Shift Notes: Patient completed his 5-day Ativan taper. Tolerated well. No adverse reactions noted. VS monitored closely. BP monitored due to HTN. On routine meds as ordered. Withdrawal symptoms monitored. Patient presented with anxiety and fine tremors and sweats. Initial CIWA 4. Last CIWA 2. Per patient, Ativan has been effective in reducing his withdrawal symptoms. Participated in group and activities. Compliant with care and treatment. All needs met and attended. Will continue to monitor closely.
--- NOTE | 2017-01-20 19:05 | NUR ---
Start of shift note Received report from day shift nurse. Pt is a 56 yo male, A+Ox4, presenting to [facility] [place] for ETOH dependence. Pt has NKA, is on Full Code status, and on Regular diet. Pt is on Fall and Seizure precautions. Pt has HX of HTN, Hyperlipidemia, hyperglycemia, Anxiety, depression, eczema, and Seizure. Pt is on 5 day Ativan taper, tolerated well. No s/s of distress noted at this time. Respirations even and unlabored. Will continue to monitor.
[2017-01-20 20:19] VITALS: BP 150/101
[2017-01-20] MEDS: TRAZODONE 50 MG TABLET PO PRN (20:51)
[2017-01-20] MEDS: MAGNESIUM OXIDE 400 MG TABLET PO SCH ×2 (20:51→21:00)
[2017-01-20] MEDS: CLONIDINE HCL 0.1 MG TABLET PO PRN (20:52)
--- NOTE | 2017-01-20 20:52 | NUR ---
PRN Clonidine and Trazodone Pt noted with elevated b/p and c/o inability to sleep and requested for PRN Trazodone. PRN Clonidine and Trazodone given and tolerated well. Will reassess within 1 HR. Will continue to monitor.
--- NOTE | 2017-01-20 21:45 | NUR ---
PRN Clonidine and Trazodone Reassessment Medications effective. B/P WNL. Pt is resting well in bed at this time. No s/s of ASE/distress noted at this time. Respirations even and unlabored. Will continue to monitor.
[2017-01-21 00:51] VITALS: BP 137/95
[2017-01-21 04:29] VITALS: BP 134/94
--- NOTE | 2017-01-21 07:00 | NUR ---
End of shift note Pt is a 56 yo male, A+Ox4, presenting to [facility] for ETOH dependence. Pt has NKA, is on Full Code status, and on Regular diet. Pt is on Fall and Seizure precautions. Pt has HX of HTN, Hyperlipidemia, hyperglycemia, Anxiety, depression, eczema, and Seizure. Pt is on 5 day Ativan taper, tolerated well. Pt was given PRN Clonidine and Trazodone @2051. Pt slept for a total of 9 HRS. Last CIWA: 1 @0400. No s/s of distress noted at this time. Respirations even and unlabored. Will endorse to day shift nurse.
[2017-01-21 08:00] VITALS: BP 136/97
--- NOTE | 2017-01-21 08:10 | NUR ---
Start of Shift Report from the night nurse: pt is 56 y/o male here for Etoh r/t Rum 750mL daily for 1.5 years; 5 day Ativan is to start today during my shift. PRN Ativan given once last night. Pt is a full code, ADA diet, NKA, fall and seizure precautions ordered. HHx: HTN still BP elevated 150's/100's so PRN Clonidine given once this morning and is on BP medications, Diabetes with metformin given as ordered and NNO for accuecheck, Seizure r/t w/d, Hyperlipidemia, Eczema, H. Pylori Virus and first time doing detox. PRN trazodone given last night. Skin is intact with no open wounds noted. No abnormal labs endorsed to me. Last CIWA 1. Pt is asleep in room. I will cont. to monitor the pt.
[2017-01-21] MEDS: TRIAMCINOLONE ACET 0.5% CREAM 15 GM TUBE TP SCH ×2 (09:00→17:00)
[2017-01-21] MEDS: LISINOPRIL 10 MG TABLET PO SCH (09:51)
[2017-01-21] MEDS: MULTIVITAMINS,THERAPEUTIC TABLET PO SCH (09:51)
[2017-01-21] MEDS: THIAMINE HCL 100 MG TABLET PO SCH (09:51)
[2017-01-21] MEDS: SERTRALINE HCL 50 MG TABLET PO SCH (09:51)
[2017-01-21] MEDS: GABAPENTIN 300 MG CAPSULE PO SCH ×3 (09:51→21:32)
[2017-01-21] MEDS: FOLIC ACID 1 MG TABLET PO SCH (09:51)
[2017-01-21] MEDS: ASPIRIN 81 MG TAB.CHEW PO SCH (09:51)
[2017-01-21] MEDS: AMLODIPINE 10 MG TABLET PO SCH (09:52)
[2017-01-21] MEDS: METFORMIN HCL 500 MG TABLET PO SCH ×2 (09:54→16:59)
[2017-01-21 12:00] VITALS: BP 150/99
[2017-01-21] MEDS ORDERED: GABA-534 PO (13:18)
[2017-01-21] MEDS ORDERED: AMLO10TA2 PO (13:18)
[2017-01-21] MEDS ORDERED: TRAZ-144 PO (13:18)
[2017-01-21 14:33] LABS: *AMPHETAMINE, URINE NEGATIVE (NEGATIVE); *BARBITURATE, URINE NEGATIVE (NEGATIVE); *CANNABINOID, URINE NEGATIVE (NEGATIVE); *COCCAINE, URINE NEGATIVE (NEGATIVE); *OPIATE, URINE NEGATIVE (NEGATIVE); *PHENCYCLIDINE SCREEN,URINE NEGATIVE (NEGATIVE)
[2017-01-21 16:00] VITALS: BP 162/116
[2017-01-21] MEDS: hydrALAZINE HCL 25 MG TABLET PO PRN (16:58)
--- NOTE | 2017-01-21 17:15 | NUR ---
Medication PRN & Non-Administration BP elevated after smoking at 162/116 HR 105; PRN Hydralazine 25mg given as ordered. Pt refused Kenalog topical cream scheduled at 0900am and 1700pm. I will reassess in 1H.
--- NOTE | 2017-01-21 18:55 | NUR ---
End of Shift Report to the night nurse: pt is 56 y/o male here for Etoh r/t Rum 750mL daily for 1.5 years; 5 day Ativan started today. Pt is a full code, ADA diet, NKA, fall and seizure precautions ordered. HHx: HTN, Diabetes, Seizure r/t w/d, Hyperlipidemia, Eczema, H. Pylori Virus and first time doing detox. Features symmetrical, PERRLA 3mm, no LOVE, mild dizziness noted r/t medication SE's, numbness and tingling on BUE's and BLE's with news orders for gabapentin r/t neuropathy and is effective. Pt denies chest pain, pulses present in all extremities, HTN managed with modified lisinopril 10mg, PRN Hydralazine once at 1700pm with BP 162/116 HR 105 after returning from smoking during my shift. No SOB or respiratory distress noted. DM managed with Metformin, no N/V/D or ab cramping noted during my shift. Skin is intact with no open wounds noted, yet pt has new orders for medications reconciled for home med topical for Eczema & refused it at 0900am and 1700pm during my shift since he uses it at home PRN. No hallucination, delusions or suicidal ideations noted. Pt attended group therapy and activities during my shift. Last CIWA 4 since pt is excited about getting d/cd home tomorrow with UDS obtained.
[2017-01-21 20:00] VITALS: BP 148/100
--- NOTE | 2017-01-21 20:00 | NUR ---
Start of Shift Patient is a 56 year old male admitted for ETOH Dependence, placed on a 5-day Ativan taper, completed. PMH: HTN, DM type 2, on Metformin and NNO for accucheck, Seizure r/t w/d, Hyperlipidemia, Eczema and H. pylori. NKA, regular diet and full code. Upon assessment, pt is AAOx4 with steady gait, respirations even/unlabored, denies SOB/chest pain, pt is scheduled for discharge tomorrow. Safety measures in place, call light within reach, side rails up x2, bed locked and in low position. Will continue to monitor.
--- NOTE | 2017-01-21 20:30 | NUR ---
Received endorsement Patient is a 56-year old, male, admitted for ETOH Dependence. Pt placed on a 5-day Ativan taper and completed. No adverse reaction noted. Pt is Full Code, on ADA diet and with NKA. Pt with history of HTN, DM type 2, on Metformin and NNO for accucheck, Seizure r/t w/d, Hyperlipidemia, Eczema and H. pylori. Pt is AAOx4 and with no anxiety noted. Pt is ambulatory with steady gait and with no open skin noted. Fall, universal, seizure and safety prec in place. Call light within reach. With no c/o pain. Latest CIWA=1. Will continue to monitor pt.
[2017-01-21] MEDS: TRAZODONE 50 MG TABLET PO PRN (21:33)
[2017-01-21] MEDS: CLONIDINE HCL 0.1 MG TABLET PO PRN (21:33)
--- NOTE | 2017-01-21 21:33 | NUR ---
RN note PRN Clonidine and Trazodone Pt with CH=054/100, asymptomatic. Pt also c/o inability to sleep. Administered Clonidine 0.1 mg PO for elevated BP and Trazodone 50 mg PO for insomnia. Will reassess.
--- NOTE | 2017-01-21 22:35 | NUR ---
RN note reassess Pt's BP rzqccniha=008/91, Pulse=89. Pt verbalized feeling sleepy.
[2017-01-22] VITALS: BP 142/94
--- NOTE | 2017-01-22 04:05 | NUR ---
RN note Vital Signs and CIWA assessment refusal Pt refused vital signs and CIWA assessment for 0400 despite explanation of risks and benefits. No SOB noted.
--- NOTE | 2017-01-22 07:05 | NUR ---
End of Shift Patient is a 56-year old, male, admitted for ETOH Dependence. Pt placed on a 5-day Ativan taper and completed. No adverse reaction noted. Pt is Full Code, on ADA diet and with NKA. Pt with history of HTN, DM type 2, on Metformin and NNO for accucheck, Seizure r/t w/d, Hyperlipidemia, Eczema and H. pylori. Pt is AAOx4 and with no anxiety noted. Pt is ambulatory with steady gait and with no open skin noted. Fall, universal, seizure and safety prec in place. Call light within reach. With no c/o pain. Latest CIWA=1, slept for 6 hours. For discharge today. Pt is aware. Endorsed to AM shift nurse for continuity of care.
--- NOTE | 2017-01-22 07:31 | NUR ---
START OF SHIFT Received report from nurse. 56 year old male patient admitted on 01/15/17 for ETOH withdrawals. Pt has completed 5 day Ativan taper and is medically cleared for discharge. Pt did not present with acute s/s of withdrawals, most recent CIWA is 1 at 0000. Pt has hx of HTN, DM type 2, and eczema. Pt slept for 6 hours, PRN Trazodone and Clonidine administered and effective. Pt is compliant with MD orders and treatment plan. V/S remain WNL. All needs met at this time, pt remains safe, will continue to monitor.
[2017-01-22] MEDS: ASPIRIN 81 MG TAB.CHEW PO SCH (08:25)
[2017-01-22] MEDS: THIAMINE HCL 100 MG TABLET PO SCH (08:25)
[2017-01-22] MEDS: SERTRALINE HCL 50 MG TABLET PO SCH (08:25)
[2017-01-22] MEDS: METFORMIN HCL 500 MG TABLET PO SCH (08:25)
[2017-01-22] MEDS: FOLIC ACID 1 MG TABLET PO SCH (08:25)
[2017-01-22] MEDS: GABAPENTIN 300 MG CAPSULE PO SCH (08:25)
[2017-01-22] MEDS: TRIAMCINOLONE ACET 0.5% CREAM 15 GM TUBE TP SCH (08:26)
[2017-01-22] MEDS: MULTIVITAMINS,THERAPEUTIC TABLET PO SCH (08:26)
[2017-01-22] MEDS: AMLODIPINE 10 MG TABLET PO SCH (08:26)
[2017-01-22] MEDS: LISINOPRIL 10 MG TABLET PO SCH (08:26)
[2017-01-22 08:29] VITALS: BP 123/97
--- NOTE | 2017-01-22 09:40 | NUR ---
D/C NOTE Pt is A/O x4. V/S remain WNL. Pt denies SI/HI or hallucinations. Pt shows no s/s of acute withdrawal at this time, and is stable. MD has medically cleared pt for d/c . Education on Hepatitis C, smoking cessation and medication side effects provided. Pt verbalizes understanding. All pt belongings are in belonging bag, including prescriptions, and home medications. Refuses PNU vaccination. Pt is being accompanied by [facility] at this time to be transported to rehab. All needs met.
== END 2017-01-22 09:40 | disposition home or self-care (01) | DRG 895 ==
LOC: SRC 14:26
PROVIDERS: ADMIT Internal Medicine; ATTEND Internal Medicine
PROC: HZ2ZZZZ Detoxification Services for Substance Abuse Treatment (ICD-10-PCS; principal; 2017-01-15)
PROC: HZ41ZZZ Group Counseling for Substance Abuse Treatment, Behavioral (ICD-10-PCS; 2017-01-17)
PROC: HZ31ZZZ Individual Counseling for Substance Abuse Treatment, Behavioral (ICD-10-PCS; 2017-01-17)
DX: F10.230 Alcohol dependence with withdrawal, uncomplicated (principal); F32.1 Major depressive disorder, single episode, moderate; K70.10 Alcoholic hepatitis without ascites; Y90.9 Presence of alcohol in blood, level not specified; K21.9 Gastro-esophageal reflux disease without esophagitis; K70.0 Alcoholic fatty liver; F17.210 Nicotine dependence, cigarettes, uncomplicated; E83.42 Hypomagnesemia; E87.6 Hypokalemia; E78.5 Hyperlipidemia, unspecified; E11.9 Type 2 diabetes mellitus without complications; Z79.84 Long term (current) use of oral hypoglycemic drugs; Z79.899 Other long term (current) drug therapy; Z79.82 Long term (current) use of aspirin; I10 Essential (primary) hypertension; F41.9 Anxiety disorder, unspecified
CPT/HCPCS: 36415; 70030-TC; 80307; 80361; 82747; 83550; 83690; 83735; 84100; 84443; 85014; 85025; 86580; 86592; 86705; 86803; 87340; 87806; A4663; G0480; J3411

== ENCOUNTER 2018-05-09 20:05 | Inpatient (IN) | payer MEDICAID, OTHER ==
[~2018-05-09] VITALS: Ht 185.4 cm; Wt 68.0 kg
[~2018-05-09 20:05] MED LIST: AMLO10TA6 PO; ASPI81TA93 PO; ATOR20TA PO; GABA-534 PO; LISI10TA5 PO; METF-442 PO; TRAZ-213 PO; TRIA15CR2 TP
[2018-05-11 16:00] VITALS: BP 139/95
[2018-05-11] MEDS ORDERED: FURO-151 PO (16:18)
[2018-05-11] MEDS ORDERED: METO-356 PO (16:18)
[2018-05-11] MEDS ORDERED: SPIR100T5 PO (16:18)
[2018-05-11] MEDS ORDERED: ACETAMINOPHEN 325 MG TABLET PO PRN (16:45)
[2018-05-11] MEDS ORDERED: MIRALAX 17 GM POWD.PACK PO PRN (16:45)
[2018-05-11] MEDS ORDERED: 5 DAY TAPER VALIUM-SERENITY PROTOCOL PO PRN (16:45)
[2018-05-11] MEDS ORDERED: diphenhydrAMINE 50 MG CAPSULE PO PRN (16:45)
[2018-05-11] MEDS ORDERED: DIAZEPAM 5 MG TABLET PO PRN (16:45)
[2018-05-11] MEDS ORDERED: LORAZEPAM 2 MG/1 ML VIAL IM PRN (16:45)
[2018-05-11] MEDS ORDERED: MAG HYDROX/AL HYDROX/SIMETH 30 ML LIQUID UDC PO PRN (16:45)
[2018-05-11] MEDS ORDERED: DIAZEPAM 10 MG TABLET PO PRN ×2 (16:45)
[2018-05-11] MEDS ORDERED: LOPERAMIDE HCL 2 MG CAPSULE PO PRN ×2 (16:45)
[2018-05-11] MEDS ORDERED: THIAMINE HCL 200 MG/2 ML VIAL IM ONE (16:45)
[2018-05-11] MEDS ORDERED: IBUPROFEN 600 MG TABLET PO PRN (16:45)
[2018-05-11] MEDS ORDERED: MAGNESIUM HYDROXIDE 30 ML LIQUID UDC PO PRN (16:45)
[2018-05-11] MEDS ORDERED: DICYCLOMINE HCL 20 MG TABLET PO PRN (16:45)
[2018-05-11 16:59] LABS: *AMPHETAMINE, URINE NEGATIVE (NEGATIVE); *BARBITURATE, URINE NEGATIVE (NEGATIVE); *CANNABINOID, URINE POSITIVE (NEGATIVE); *COCCAINE, URINE NEGATIVE (NEGATIVE); *OPIATE, URINE POSITIVE (NEGATIVE); *PHENCYCLIDINE SCREEN,URINE NEGATIVE (NEGATIVE)
[2018-05-11] MEDS: DIAZEPAM 10 MG TABLET PO SCH ×2 (19:24→21:53)
[2018-05-11 20:06] LABS: BASOPHILS % (AUTO) 0.5 % (0.0-2.0); EOSINOPHILS # (AUTO) 0.1 K/uL (0.0-0.7); EOSINOPHILS % (AUTO) 1.2 % (0.0-7.0); HEMATOCRIT 42.5 % (36.7-47.1); HEMOGLOBIN 14.9 g/dL (12.5-16.3); MEAN CORPUSCULAR HEMOGLOBIN 36.1 uug (23.8-33.4); MEAN CORPUSCULAR HGB CONC 35 g/dL (32.5-36.3); MEAN CORPUSCULAR VOLUME 103.1 fL (73.0-96.2); MONOCYTES # (AUTO) 0.5 K/uL (2.0-10.0); MONOCYTES % (AUTO) 6.3 % (0.0-11.0); NEUTROPHILS # (AUTO) 5.3 K/uL (1.8-8.9); PLATELET COUNT (AUTO) 162 K/uL (152-348); RED BLOOD CELL COUNT(AUTO) 4.12 MIL/uL (4.06-5.63); WHITE BLOOD COUNT (AUTO) 7.9 K/uL (3.6-10.2)
[2018-05-11 20:12] LABS: BILIRUBIN,TOTAL 1.6 mg/dL (0.2-1.0); CREATININE 0.8 mg/dL (0.6-1.3); MAGNESIUM 1.6 mg/dL (1.8-2.4); POTASSIUM 4.5 mmol/L (3.5-5.1); TOTAL PROTEIN, SERUM 8.7 g/dL (6.4-8.2)
[2018-05-11 20:20] LABS: THYROID STIMULATING HORMONE 2.273 mIU/mL (0.358-3.740)
[2018-05-11] MEDS ORDERED: MAGNESIUM OXIDE 400 MG TABLET PO ONE (20:45)
[2018-05-12 08:00] VITALS: BP 156/115
[2018-05-12] MEDS: THIAMINE HCL 100 MG TABLET PO SCH (08:32)
[2018-05-12] MEDS: DIAZEPAM 5 MG TABLET PO SCH ×4 (08:32→20:28)
[2018-05-12] MEDS: FOLIC ACID 1 MG TABLET PO SCH (08:32)
[2018-05-12] MEDS: MULTIVITAMINS,THERAPEUTIC TABLET PO SCH (08:32)
[2018-05-12] MEDS: LISINOPRIL 10 MG TABLET PO SCH (08:32)
[2018-05-12] MEDS: SPIRONOLACTONE 100 MG TABLET PO SCH (08:33)
[2018-05-12] MEDS: FUROSEMIDE 40 MG TABLET PO SCH (08:33)
[2018-05-12] MEDS: METOPROLOL SUCCINATE XL 25 MG TAB.SR.24H PO SCH (08:33)
[2018-05-12] MEDS ORDERED: TUBERCULIN,PURIF.PROT.DERIV. 5 TU/0.1 ML TEST ID ONE (09:00)
[2018-05-12] MEDS: CLONIDINE HCL 0.1 MG TABLET PO PRN (09:50)
[2018-05-12 12:00] VITALS: BP 127/93
[2018-05-12 16:00] VITALS: BP 128/89
[2018-05-12 20:07] VITALS: BP 109/78
[2018-05-13 04:54] VITALS: BP 126/88
[2018-05-13 06:10] LABS: HEPATITIS B SURFACE AG Negative (Negative)
[2018-05-13 08:30] VITALS: BP 117/87
[2018-05-13] MEDS: DIAZEPAM 5 MG TABLET PO SCH ×3 (08:58→21:36)
[2018-05-13] MEDS: METOPROLOL SUCCINATE XL 25 MG TAB.SR.24H PO SCH (08:58)
[2018-05-13] MEDS: THIAMINE HCL 100 MG TABLET PO SCH (08:58)
[2018-05-13] MEDS: FUROSEMIDE 40 MG TABLET PO SCH (08:58)
[2018-05-13] MEDS: SPIRONOLACTONE 100 MG TABLET PO SCH (08:58)
[2018-05-13] MEDS: FOLIC ACID 1 MG TABLET PO SCH (08:59)
[2018-05-13] MEDS: LISINOPRIL 10 MG TABLET PO SCH (08:59)
[2018-05-13] MEDS: MULTIVITAMINS,THERAPEUTIC TABLET PO SCH (08:59)
[2018-05-13 09:38] LABS: BILIRUBIN,DIRECT 0.5 mg/dL (0.0-0.2); BILIRUBIN,TOTAL 1.3 mg/dL (0.2-1.0); TOTAL PROTEIN, SERUM 8.2 g/dL (6.4-8.2)
[2018-05-13 12:00] VITALS: BP 121/88
[2018-05-13 16:30] VITALS: BP 120/86
[2018-05-13 20:00] VITALS: BP 116/84
[2018-05-13] MEDS: TRAZODONE 50 MG TABLET PO PRN (21:36)
[2018-05-14 08:00] VITALS: BP 113/86
[2018-05-14] MEDS: METOPROLOL SUCCINATE XL 25 MG TAB.SR.24H PO SCH (09:12)
[2018-05-14] MEDS: SPIRONOLACTONE 100 MG TABLET PO SCH (09:12)
[2018-05-14] MEDS: FUROSEMIDE 40 MG TABLET PO SCH (09:12)
[2018-05-14] MEDS: MULTIVITAMINS,THERAPEUTIC TABLET PO SCH (09:13)
[2018-05-14] MEDS: DIAZEPAM 5 MG TABLET PO SCH ×2 (09:13→20:42)
[2018-05-14] MEDS: THIAMINE HCL 100 MG TABLET PO SCH (09:13)
[2018-05-14] MEDS: LISINOPRIL 10 MG TABLET PO SCH (09:13)
[2018-05-14] MEDS: FOLIC ACID 1 MG TABLET PO SCH (09:13)
[2018-05-14 12:30] VITALS: BP 122/86
[2018-05-14 16:30] VITALS: BP 124/89
[2018-05-14 20:10] VITALS: BP 129/91
[2018-05-15 07:51] LABS: BILIRUBIN,TOTAL 1.1 mg/dL (0.2-1.0); CREATININE 0.9 mg/dL (0.6-1.3); MAGNESIUM 1.8 mg/dL (1.8-2.4); POTASSIUM 4.4 mmol/L (3.5-5.1); TOTAL PROTEIN, SERUM 9.2 g/dL (6.4-8.2)
[2018-05-15 08:00] VITALS: BP 130/89
[2018-05-15] MEDS: LISINOPRIL 10 MG TABLET PO SCH (08:30)
[2018-05-15] MEDS: FOLIC ACID 1 MG TABLET PO SCH (08:30)
[2018-05-15] MEDS: METOPROLOL SUCCINATE XL 25 MG TAB.SR.24H PO SCH (08:31)
[2018-05-15] MEDS: FUROSEMIDE 40 MG TABLET PO SCH (08:31)
[2018-05-15] MEDS: SPIRONOLACTONE 100 MG TABLET PO SCH (08:31)
[2018-05-15] MEDS: MULTIVITAMINS,THERAPEUTIC TABLET PO SCH (08:31)
[2018-05-15] MEDS: THIAMINE HCL 100 MG TABLET PO SCH (08:31)
[2018-05-15] MEDS ORDERED: DIAZEPAM 5 MG TABLET PO SCH (09:00)
[2018-05-15] MEDS: CLONIDINE HCL 0.1 MG TABLET PO PRN (12:13)
[2018-05-15 12:16] VITALS: BP 122/91
[2018-05-15] MEDS ORDERED: TRAZ-213 PO (13:52)
[2018-05-15 16:55] VITALS: BP 115/78
[2018-05-15 20:10] VITALS: BP 122/84
[2018-05-15] MEDS: TRAZODONE 50 MG TABLET PO PRN (23:18)
[2018-05-16 08:52] VITALS: BP 118/78
[2018-05-16 08:59] VITALS: BP 118/78
[2018-05-16] MEDS: FOLIC ACID 1 MG TABLET PO SCH (08:59)
[2018-05-16] MEDS: LISINOPRIL 10 MG TABLET PO SCH (08:59)
[2018-05-16] MEDS: METOPROLOL SUCCINATE XL 25 MG TAB.SR.24H PO SCH (08:59)
[2018-05-16] MEDS: THIAMINE HCL 100 MG TABLET PO SCH (08:59)
[2018-05-16] MEDS: MULTIVITAMINS,THERAPEUTIC TABLET PO SCH (08:59)
[2018-05-16] MEDS: SPIRONOLACTONE 100 MG TABLET PO SCH (08:59)
[2018-05-16] MEDS: FUROSEMIDE 40 MG TABLET PO SCH (09:00)
== END 2018-05-16 09:50 | disposition home or self-care (01) | DRG 772 ==
LOC: SRC 05-11 14:35
PROVIDERS: ADMIT Family Medicine Addiction Medicine; ATTEND Family Medicine Addiction Medicine
PROC: HZ2ZZZZ Detoxification Services for Substance Abuse Treatment (ICD-10-PCS; principal; 2018-05-11)
PROC: HZ41ZZZ Group Counseling for Substance Abuse Treatment, Behavioral (ICD-10-PCS; 2018-05-12)
PROC: HZ31ZZZ Individual Counseling for Substance Abuse Treatment, Behavioral (ICD-10-PCS; 2018-05-13)
DX: F10.230 Alcohol dependence with withdrawal, uncomplicated (principal); K70.31 Alcoholic cirrhosis of liver with ascites; K70.0 Alcoholic fatty liver; F10.220 Alcohol dependence with intoxication, uncomplicated; Y90.3 Blood alcohol level of 60-79 mg/100 ml; F17.210 Nicotine dependence, cigarettes, uncomplicated; Z79.899 Other long term (current) drug therapy; F41.1 Generalized anxiety disorder; I10 Essential (primary) hypertension; K21.9 Gastro-esophageal reflux disease without esophagitis; E78.5 Hyperlipidemia, unspecified; E11.9 Type 2 diabetes mellitus without complications; F10.229 Alcohol dependence with intoxication, unspecified
CPT/HCPCS: 36415; 70030-TC; 80307; 80346; 80349; 80361; 82105; 83690; 83735; 84443; 85025; 86580; 86592; 86705; 86803; 87340; 87806; G0480; J3411; Q0163